=== PATIENT | female | born 1995 | race Caucasian/White ===

== ENCOUNTER → 2022-01-09 | Outpatient (CLI) | payer OTHER ==
[~2022-01-09] MED LIST: ESCI10 PO
== END | disposition home or self-care (01) ==
LOC: LAB SHORT 09:20 → LAB 09:20
PROVIDERS: Obstetrics & Gynecology
DX: Z12.4 Encounter for screening for malignant neoplasm of cervix (principal)
CPT/HCPCS: G0123

== ENCOUNTER 2022-01-16 10:41 | Day surgery (SDC) | payer OTHER ==
[~2022-01-16] VITALS: Ht 167.6 cm; Wt 82.9 kg
[2022-01-16] MEDS ORDERED: ESCI10 PO (11:17)
--- NOTE | 2022-01-16 12:32 | NUR ---
01/16/22 1232 Abbi Hughes ORSC.JAR LOWER PREP-POS ORSC.DEBORAH UPPER PREP-CHLORAPREP
--- NOTE | 2022-01-16 13:57 | NUR ---
01/16/22 1357 Ry Woods C/O NAUSEA AND BERGER. GIVEN ZOFRAN 4MG IV FOR NAUSEA. WILL CONTINUE TO MONITOR.
== END 2022-01-16 14:33 | disposition home or self-care (01) ==
LOC: ORSCSDS 10:41
PROVIDERS: Obstetrics & Gynecology
PROC: 0UT74ZZ Resection of Bilateral Fallopian Tubes, Percutaneous Endoscopic Approach (ICD-10-PCS; principal; 2022-01-16 12:00)
DX: Z30.2 Encounter for sterilization (principal); K21.9 Gastro-esophageal reflux disease without esophagitis; Z79.899 Other long term (current) drug therapy
CPT/HCPCS: 88302; A9270; J0171; J1100; J2250; J2370; J2405; J2704; J2795; J3010; J7120

== ENCOUNTER → 2023-10-26 | Outpatient (CLI) | payer OTHER | LOC: LAB SHORT 08:11 → LAB 08:11 | DX: D22.5 Melanocytic nevi of trunk (principal) | CPT/HCPCS: 88305 ==

== ENCOUNTER 2023-12-22 14:09 | Emergency (ER) | payer OTHER ==
[~2023-12-22] VITALS: Ht 167.6 cm; Wt 83.9 kg
[2023-12-22 14:54] LABS: BASOPHILS ABSOLUTE AUTO 0.04 K/mm3 (0.00-0.23); BASOPHILS PERCENT AUTO 1 % (0-2); EOSINOPHILS ABSOLUTE AUTO 0.39 K/mm3 (0.00-0.68); EOSINOPHILS PERCENT AUTO 5 % (0-6); Hematocrit 42.1 % (33.0-51.0); Hemoglobin 13.6 g/dL (11.5-16.0); IMMATURE GRAN ABSOLUTE AUTO 0.02 K/mm3 (0.00-0.10); IMMATURE GRAN PERCENT AUTO 0 % (0-1); LYMPHOCYTES ABSOLUTE AUTO 1.86 K/mm3 (0.84-5.20); LYMPHOCYTES PERCENT AUTO 25 % (21-46); MONOCYTES ABSOLUTE AUTO 0.51 K/mm3 (0.16-1.47); MONOCYTES PERCENT AUTO 7 % (4-13); Mean Corpuscular HGB 28.2 pg (26.0-34.0); Mean Corpuscular HGB Conc 32.3 g/dL (31.5-36.5); Mean Corpuscular Volume 87 fL (80-100); Mean Platelet Volume 8.6 fL (9.1-12.4); NEUTROPHILS ABSOLUTE AUTO 4.58 K/mm3 (1.96-9.15); NEUTROPHILS PERCENT AUTO 62 % (41-73); Platelet Count 259 K/mm3 (150-400); RDW Coefficient Variation 13.1 % (11.7-14.2); Red Blood Cell Count 4.83 M/mm3 (3.80-5.20)
[2023-12-22 15:11] LABS: Albumin, Blood 4.1 g/dL (3.4-5.0); Albumin/Globulin Ratio 1.1 (0.8-1.8); Bilirubin, Total 0.2 mg/dL (0.1-1.0); Bun/Creatinine Ratio 13.1 (12.0-20.0); Globulin, Blood 3.9 g/dL (2.2-4.0); Potassium, Blood 3.6 mmol/L (3.5-5.5)
[2023-12-22 15:55] LABS: Source, Urine Clean Catch
[2023-12-22 16:14] LABS: Appearance, Urine Clear (Clear); Bilirubin, Urine Neg (Neg); Blood, Urine Neg (Neg); Glucose Qualitative, Urine Neg (Neg); Ketones, Urine Neg (Neg); Leukocyte Esterase, Urine Neg (Neg); Nitrite, Urine Neg (Neg); Protein, Urine Neg (Neg); Urobilinogen, Urine NORM (Normal)
[2023-12-22 16:28] LABS: Color, Urine Pale Yellow (P-Yellow)
[2023-12-22] MEDS ORDERED: Mag Hydrox/AL Hydrox/Simeth 30 ML UDC PO ONE (18:25)
[2023-12-22] MEDS ORDERED: Lidocaine 2% Viscous Soln 15 ML UDC PO ONE (18:25)
[2023-12-22 18:43] VITALS: BP 120/70
[2023-12-22] MEDS ORDERED: Budeprion Xl300 MG PO (18:44)
[2023-12-22] MEDS ORDERED: OMEP20ER PO (19:13)
[2023-12-22] MEDS ORDERED: SUCR1 PO (19:25)
== END 2023-12-22 19:24 | disposition home or self-care (01) ==
LOC: ER 14:09
PROVIDERS: Student in an Organized Health Care Education/Training Program
DX: R10.13 Epigastric pain (principal); Z79.899 Other long term (current) drug therapy
CPT/HCPCS: 76705; 80053; 81003; 83690; 85025; 99284-25; A9270